=== PATIENT | female | born 1970 | race Caucasian/White ===

== ENCOUNTER 2020-10-02 13:18 | Emergency (ER) | payer MEDICARE, MEDICAID ==
[~2020-10-02] VITALS: Ht 177.8 cm; Wt 159.1 kg
[~2020-10-02 13:18] MED LIST: BUPROPRION PO; DICL100T11 PO; DULO20CA50 PO; DULO60CA45 PO; GABA600T13 PO; HYDR50TA65 PO; NSAID; TOPI25TA15 PO; [UNRECOGNIZED DRUG - OTHER]; [UNRECOGNIZED DRUG - OTHER]; hctz PO
[2020-10-02] MEDS ORDERED: [UNRECOGNIZED DRUG - OTHER] IV ONE (14:30)
[2020-10-02 14:34] LABS: BASOPHILS % (AUTO) 0.7 % (0-1); EOSINOPHILS # (AUTO) 0.1 X10'3 (0-0.9); EOSINOPHILS % (AUTO) 1.3 % (0-6); HEMOGLOBIN 14.6 g/dl (12.0-16.0); LYMPHOCYTES # (AUTO) 1.2 X10'3 (1.1-4.8); LYMPHOCYTES % (AUTO) 23.8 % (21-51); MEAN CORPUSCULAR HGB CONC 34.1 g/dL (33.0-36.5); MEAN PLATELET VOLUME 7.6 FL (7.4-10.4); MONOCYTES # (AUTO) 0.7 X10'3 (0-0.9); MONOCYTES % (AUTO) 12.8 % (2-12); NEUTROPHILS # (AUTO) 3.2 X10'3 (1.8-7.7); NEUTROPHILS % (AUTO) 61.4 % (42-75); PLATELET COUNT 289 X10'3 (140-440); RED BLOOD COUNT 4.57 X10'6 (4.20-5.60); RED CELL DISTRIBUTION WIDTH 13.6 % (11.5-14.5); WHITE BLOOD COUNT 5.2 X10'3 (4.5-11.0)
[2020-10-02 14:40] LABS: ALANINE AMINOTRANSFERASE 41 U/L (12-78); ALBUMIN 3.9 G/DL (3.4-5.0); ALBUMIN/GLOBULIN RATIO 0.9 (1.1-1.5); ALKALINE PHOSPHATASE 142 IU/L (46-116); ANION GAP 11 (8-16); ASPARTATE AMINO TRANSFERASE 30 U/L (10-37); BILIRUBIN,TOTAL 0.2 MG/DL (0.1-1.0); BLOOD UREA NITROGEN 17 MG/DL (7-18); BUN/CREATININE RATIO 14.7 (6.6-38.0); CALCIUM 9.4 MG/DL (8.5-10.1); CHLORIDE 101 MMOL/L (99-107); CREATININE 1.16 MG/DL (0.40-0.90); GLUCOSE 96 MG/DL (70-104); SODIUM 138 MMOL/L (135-145); TOTAL CARBON DIOXIDE 26.4 MMOL/L (24-32); TOTAL PROTEIN 8.2 G/DL (6.4-8.2); eGFR 50 ML/MIN
[2020-10-02 14:41] LABS: POTASSIUM 4.8 MMOL/L (3.5-5.1)
--- NOTE | 2020-10-02 15:27 | NUR ---
Nurse Marga has talked with MANA Smith about the medication given for covid. talked with pt and she states she is aware this is still in the experimental stage and we aren't fully aware of all the possible side effects. pt verbally consented for the IV med for covid to be given.
[2020-10-02] MEDS ORDERED: BENZ-16 PO (17:11)
[2020-10-02 17:45] VITALS: BP 166/88
== END 2020-10-02 18:23 | disposition home or self-care (01) ==
LOC: ER 13:19
DX: U07.1 COVID-19 (principal); R05 Cough; R51.9 Headache, unspecified; J02.9 Acute pharyngitis, unspecified; I10 Essential (primary) hypertension; J45.909 Unspecified asthma, uncomplicated; G89.29 Other chronic pain; Z98.51 Tubal ligation status; Z98.890 Other specified postprocedural states; Z88.2 Allergy status to sulfonamides; Z88.6 Allergy status to analgesic agent; Z88.1 Allergy status to other antibiotic agents; Z88.8 Allergy status to other drugs, medicaments and biological substances; Z79.899 Other long term (current) drug therapy
CPT/HCPCS: 36415; 71045; 80053; 85025; 96360; 99285; J7050; M0243; Q0243

== ENCOUNTER 2022-09-26 16:16 | Emergency (ER) | payer MEDICARE, MEDICAID ==
[~2022-09-26] VITALS: Ht 177.8 cm; Wt 150.0 kg
[~2022-09-26 16:16] MED LIST changes: -DULO60CA45 PO; +DULO60CA59 PO
[2022-09-26 16:20] VITALS: BP 169/76
[2022-09-26] MEDS ORDERED: NIRM1TAB PO (19:02)
== END 2022-09-26 19:18 | disposition home or self-care (01) ==
LOC: ER 16:17
DX: U07.1 COVID-19 (principal); Z21 Asymptomatic human immunodeficiency virus [HIV] infection status; J02.9 Acute pharyngitis, unspecified; I10 Essential (primary) hypertension; J45.909 Unspecified asthma, uncomplicated; G89.29 Other chronic pain; Z98.51 Tubal ligation status; Z98.890 Other specified postprocedural states; Z88.2 Allergy status to sulfonamides; Z88.6 Allergy status to analgesic agent; Z88.1 Allergy status to other antibiotic agents; Z88.8 Allergy status to other drugs, medicaments and biological substances; Z79.899 Other long term (current) drug therapy
CPT/HCPCS: 99283